=== PATIENT | female | born 1950 | race Caucasian/White ===

== ENCOUNTER 2016-12-02 10:28 | Emergency (ER) | payer MEDICARE, OTHER ==
[2016-12-02] MEDS ORDERED: HYDROmorphone 0.5 MG/0.5 ML Syringe IVPUSH ONE ×3 (10:40→13:27)
[2016-12-02 10:43] VITALS: BP 114/62
[2016-12-02] MEDS ORDERED: Sodium Chloride 0.9% 1,000 ML IV SCH (10:45)
--- NOTE | 2016-12-02 11:25 | EDM.PDOC ---
ED HPI Trauma - General Chief Complaint: Lower Extremity Injury/Pain Stated Complaint: FELL BROKE RT ANKLE Time Seen by Provider: 12/02/16 11:21 Source: Reports: Patient History Limitations: Reports: No limitations - History of Present Illness INITIAL COMMENTS - FREE TEXT/NARRATIVE: pt arrived with severe pain in the rt ankle. She slipped on the steps and lost her balance. Occurred When: just prior to arrival Occurred Where: home Method of Injury: fall Severity: moderate Pain/Injury Location: Reports: lower extremity, right Consciousness: Reports: no loss of consciousness Associated Symptoms: Reports: denies other symptoms Allergies/ADRs: Allergies brompheniramine maleate [From Dimetapp Cold-Allergy (PE)] Allergy (Verified 07:23) Swelling phenylephrine HCl [From Dimetapp Cold-Allergy (PE)] Allergy (Verified 11/13/14 07:23) Swelling Home Medications: Ambulatory Orders NK [No Known Home Meds] 10/09/14 [Confirmed 10/09/14] Past Medical History - Infectious Disease History Infectious Disease History: Reports: Chicken pox - Past Surgical History Other Musculoskeletal Surgeries/Procedures:: back surgery Social & Family History - Tobacco Use Smoking Status *Q: Never Smoker - Caffeine Use Caffeine Use: Reports: Coffee - Recreational Drug Use Recreational Drug Use: No Review of Systems - Review of Systems Review Of Systems: See Below Constitutional: Reports: no symptoms Eyes: Reports: no symptoms Ears: Reports: no symptoms Nose: Reports: no symptoms Mouth/Throat: Reports: no symptoms Respiratory: Reports: No Symptoms Cardiovascular: Reports: no symptoms GI/Abdominal: Reports: No symptoms Genitourinary: Reports: no symptoms Musculoskeletal: Reports: other ( very severe pain in the rt ankle. ) Skin: Reports: no symptoms Trauma Exam - Physical Exam Exam: See Below Text/Narrative:: Pt arrived complaining of severe pain in the rt ankle and it is very deformed. Exam Limited By: No limitations General Appearance: Reports: alert, anxious Head: Reports: atraumatic Eyes: bilateral eye: EOMI, normal inspection, PERRL Ears: Reports: normal TMs Nose: Reports: normal inspection Extremities: Reports: other ( rt ankle is very bruised and painful, deformed. Xrays reveal a trimoear fracture. There is considerable displacement. ) Course - Vital Signs Last Recorded V/S: Last Vital Signs Temp 36.9 C 12/02/16 11:02 Pulse 88 12/02/16 11:02 Resp 16 12/02/16 11:02 BP 114/62 12/02/16 11:02 Pulse Ox 100 12/02/16 11:02 - Orders/Labs/Meds Orders: Active Orders 24 hr Category Date Time Status Sodium Chloride 0.9% [Normal Saline] 1,000 ml Med 12/02/16 10:45 Active IV ASDIRECTED Medication Orders Sodium Chloride (Normal Saline) 1,000 mls @ 999 mls/hr IV ASDIRECTED BRYAN Last Admin: 12/02/16 11:14 Dose: 999 mls/hr Meds: Medications Generic Name Dose Route Start Last Admin Trade Name Freq PRN Reason Stop Dose Admin Sodium Chloride 1,000 mls @ 999 mls/hr 12/02/16 10:45 12/02/16 11:14 Normal Saline IV 999 mls/hr ASDIRECTED BRYAN Administration Discontinued Medications Generic Name Dose Route Start Last Admin Trade Name Freq PRN Reason Stop Dose Admin Hydromorphone HCl 0.5 mg 12/02/16 10:40 12/02/16 10:51 Dilaudid IVPUSH 12/02/16 10:41 0.5 mg ONETIME ONE Administration Hydromorphone HCl 0.5 mg 12/02/16 11:28 12/02/16 11:56 Dilaudid IVPUSH 12/02/16 11:29 0.5 mg ONETIME ONE Administration Propofol Confirm 12/02/16 12:00 Diprivan 20 Ml Administered 12/02/16 12:01 Dose 200 mg .ROUTE .STK-MED ONE - Re-Assessments/Exams Free Text/Narrative Re-Assessment/Exam: 12/02/16 13:23 pt was found to have a treimoleor fracture of the rt ankle. She was very uncomfortable on arrival. On the medial aspect the skin was tented up with a fragment. She was given propothol and she relaxed and we were able to get some reduction of the fracture. She was much more comfortable after that. She was placed in a splint-- short leg and since that time she has been able to be comfortable. Departure - Departure Time of Disposition: 13:27 Disposition: DC/Tfer to Acute Hospital 02 Condition: fair Clinical Impression: Trimalleolar fracture of left ankle Forms: ED Department Discharge Care Plan Goals: transfer to [facility] for direct admission - My Orders Last 24 Hours: My Active Orders 12/02/16 10:45 Sodium Chloride 0.9% [Normal Saline] 1,000 ml IV ASDIRECTED - Assessment/Plan Last 24 Hours: My Active Orders 12/02/16 10:45 Sodium Chloride 0.9% [Normal Saline] 1,000 ml IV ASDIRECTED
--- NOTE | 2016-12-02 11:26 | CR ---
Ankle 2V Rt HISTORY: Injury, pain. COMPARISON: None FINDINGS: Moderately displaced tri malleolar fracture. Talar bone appears intact calcaneus demonstra paxton no definitive fracture.
[2016-12-02] MEDS ORDERED: Propofol 200 MG/20 ML SDV ONE (12:00)
== END 2016-12-02 14:09 ==
LOC: JP.ED 10:28
DX: S82.851A Displaced trimalleolar fracture of right lower leg, initial encounter for closed fracture (principal); Z98.890 Other specified postprocedural states; Z88.8 Allergy status to other drugs, medicaments and biological substances; W10.8XXA Fall (on) (from) other stairs and steps, initial encounter; Y92.099 Unspecified place in other non-institutional residence as the place of occurrence of the external cause
CPT/HCPCS: 27818; 73600; 96361; 96374; 96376; 99284; J1170; J2704; J7040

== ENCOUNTER 2021-01-08 05:52 | Day surgery (SDC) | payer MEDICARE ==
[2021-01-08] MEDS ORDERED: Sodium Chloride 0.9% 10 ML Syringe FLUSH ONE (07:30)
[2021-01-08 07:56] VITALS: BP 125/60; PULSE 56
--- NOTE | 2021-01-08 12:15 | OR ---
DATE OF PROCEDURE: 01/08/2021 SURGEON: Macy Martin MD POSTOPERATIVE CARE: Postoperative care will be provided mainly at the [address] [place] [address] [facility] in conjunction with [facility]. PREOPERATIVE DIAGNOSIS: Cataract, right eye. POSTOPERATIVE DIAGNOSIS: Cataract, right eye. PROCEDURE: Phacoemulsification with intraocular lens placement, right eye. ANESTHESIA: Topical and intracameral. ESTIMATED BLOOD LOSS: Minimal. COMPLICATIONS: None. PATHOLOGY SPECIMENS: None. SURGICAL FINDINGS: None. INDICATION FOR PROCEDURE: The patient is a 70-year-old female with history of a visually significant cataract in the right eye, which interfered with activities of daily living. This consisted of a nuclear sclerosis cataract. Following careful discussion of the risks, benefits and alternatives to cataract extraction with intraocular lens placement including blindness and , the patient elected to proceed, and informed, written consent was obtained prior to the procedure. DESCRIPTION OF THE PROCEDURE: The patient was previously identified, and a bhavna placed above the right eye. All sources, including the patient, indicated that the right eye was the correct eye. The patient was subsequently taken to the operating room where standard monitors were applied. The patient was then prepped and draped in the usual sterile fashion for ophthalmic surgery. Attention was first directed at the 12 o'clock position where a paracentesis port was fashioned. Shugar solution followed by Viscoat was instilled into the eye. Attention was then directed to the 8:30 position where a triplanar incision was made in a near-clear manner using a keratome. A continuous capsulorrhexis was then made using a combination of the cystotome and Utrata forceps. Hydrodissection was achieved using a balanced salt solution, and the lens rotated nicely. Phacoemulsification was then done using a modified [id number]-ybi-fzvnspt technique without complication. Phaco time was CDE. The remaining cortex was removed using the irrigation/aspiration handpiece. Provisc was then instilled into the eye. A Technis lens, model DCB00, at 17.5 diopters was then placed in the capsular bag using an [place] injector. The remaining viscoelastic was removed using the irrigation/aspiration forceps. All wounds were then checked and found to be watertight. The lid speculum and drapes were removed. Maxitrol ointment was placed in the patient's right eye, and the eye was shielded. The patient tolerated the procedure well. The patient was instructed to follow up tomorrow. All needle and sponge counts were correct at the end of the procedure. Macy Martin MD /[id number]
== END 2021-01-08 07:50 | disposition home or self-care (01) ==
LOC: JP.SDS 05:52
PROVIDERS: ATTEND Ophthalmology
DX: H25.11 Age-related nuclear cataract, right eye (principal)
CPT/HCPCS: 66984; V2632

== ENCOUNTER 2021-01-22 07:51 | Day surgery (SDC) | payer MEDICARE ==
[2021-01-22] MEDS ORDERED: Sodium Chloride 0.9% 10 ML Syringe FLUSH SCH (08:15)
[2021-01-22 09:02] VITALS: BP 158/76; PULSE 58
--- NOTE | 2021-01-22 11:44 | OR ---
DATE OF PROCEDURE: 01/22/2021 SURGEON: Macy Martin MD POSTOPERATIVE CARE: Postoperative care will be provided mainly at the [address] [place] [address] [facility] in conjunction with [facility]. PREOPERATIVE DIAGNOSIS: Cataract, left eye. POSTOPERATIVE DIAGNOSIS: Cataract, left eye. PROCEDURE: Phacoemulsification with intraocular lens placement, left eye. ANESTHESIA: Topical and intracameral. ESTIMATED BLOOD LOSS: Minimal. COMPLICATIONS: None. PATHOLOGY SPECIMENS: None. SURGICAL FINDINGS: None. INDICATION FOR PROCEDURE: The patient is a 70-year-old female with history of a visually significant cataract in the left eye, which interfered with activities of daily living. This consisted of a nuclear sclerosis cataract. Following careful discussion of the risks, benefits and alternatives to cataract extraction with intraocular lens placement including blindness and , the patient elected to proceed, and informed, written consent was obtained prior to the procedure. DESCRIPTION OF THE PROCEDURE: The patient was previously identified, and a bhavna placed above the left eye. All sources, including the patient, indicated that the left eye was the correct eye. The patient was subsequently taken to the operating room where standard monitors were applied. The patient was then prepped and draped in the usual sterile fashion for ophthalmic surgery. Attention was first directed at the 12 o'clock position where a paracentesis port was fashioned. Shugar solution followed by Viscoat was instilled into the eye. Attention was then directed to the 8:30 position where a triplanar incision was made in a near-clear manner using a keratome. A continuous capsulorrhexis was then made using a combination of the cystotome and Utrata forceps. Hydrodissection was achieved using a balanced salt solution, and the lens rotated nicely. Phacoemulsification was then done using a modified djgqel-[id number]-[id number] technique without complication. Phaco time was 10.45 CDE. The remaining cortex was removed using the irrigation/aspiration handpiece. Provisc was then instilled into the eye. A Technis lens, model DCB00, at 18.0 diopters was then placed in the capsular bag using an [place] injector. The remaining viscoelastic was removed using the irrigation/aspiration forceps. All wounds were then checked and found to be watertight. The lid speculum and drapes were removed. Maxitrol ointment was placed in the patient's left eye, and the eye was shielded. The patient tolerated the procedure well. The patient was instructed to follow up tomorrow. All needle and sponge counts were correct at the end of the procedure. Macy Martin MD /[id number]
== END 2021-01-22 09:16 | disposition home or self-care (01) ==
LOC: JP.SDS 07:51
PROVIDERS: ATTEND Ophthalmology
DX: H25.12 Age-related nuclear cataract, left eye (principal); Z86.79 Personal history of other diseases of the circulatory system
CPT/HCPCS: V2632

== ENCOUNTER 2021-08-10 07:20 | Emergency (ER) | payer MEDICARE ==
[2021-08-10 07:41] VITALS: BP 148/59; PULSE 61
--- NOTE | 2021-08-10 08:07 | EDM.PDOC ---
ED HPI GENERAL MEDICAL PROBLEM - General Chief Complaint: Cardiovascular Problem Stated Complaint: HEART ISSUES Time Seen by Provider: 08/10/21 07:50 Source of Information: Reports: Patient History Limitations: Reports: No Limitations - History of Present Illness INITIAL COMMENTS - FREE TEXT/NARRATIVE: 71-year-old female, relatively healthy but does have a long standing several year history of recurring and intermittent atrial fibrillation. The episodes typically last just a few hours, they always go away while she is sleeping. Yesterday she had a couple of short "shock" like feelings in her chest that just lasted 2 or 3 seconds, she does not have any type of pacemaker or defibrillator. She was not short of breath but it just caught her off guard and worried her. She did not have chest pain. When she recently had a cardiology consultation and Holter monitor, they recommended anticholesterol medication and a blood pressure medicine but she declined both. No fevers or chills, she is vaccinated for Covid, no nausea or vomiting or other symptoms. She recently had a complete physical with labs. Onset: Sudden Duration: Other (Patient had 2 episodes yesterday that only lasted 2 or 3 seconds each) Location: Reports: Chest Improves with: Reports: None Worsens with: Reports: None Context: Reports: Other (Not related to activity, they were spontaneous) Associated Symptoms: Reports: No Other Symptoms - Related Data Allergies Allergy/AdvReac Type Severity Reaction Status Date / Time brompheniramine maleate Allergy Swelling Verified 08/10/21 07:41 [From Dimetapp Cold-Allergy (PE)] phenylephrine HCl Allergy Swelling Verified 08/10/21 07:41 [From Dimetapp Cold-Allergy (PE)] Home Meds: Home Meds Aller Xt-Tree Pollen-Melaleuca [Melaleuca] 1 ml PO ASDIRECTED 01/05/21 [History] Calcium Carb/Vitamin D3/Vit K1 [Calcium + D Soft Chewable Tab] 1 tab PO DAILY 01/05/21 [History] Diclofenac Sodium [Voltaren 0.1% Ophth Soln] 4 g TOP ASDIRECTED 01/05/21 [History] Folic Acid 1 tab PO DAILY 01/05/21 [History] Glucosam/Chond-Msm1/C/Steve/Bor [Jpkjcfs-Yfutx-VTB Complex Cplt] 1 tab PO DAILY 0 01/05/21 [History] Aspirin [Halfprin] 81 mg PO DAILY 01/19/21 [History] Cholecalciferol (Vitamin D3) [Vitamin D3] 2,000 unit PO DAILY 01/19/21 [History] Multivitamin [Multi-Vitamin Daily] 1 each PO DAILY 01/19/21 [History] Past Medical History HEENT History: Reports: Cataract Cardiovascular History: Reports: Afib Respiratory History: Reports: None Gastrointestinal History: Reports: Colon Polyp Genitourinary History: Reports: None [employer] PROC[employer]ING [employer] WORK[employer] History: Reports: Musculoskeletal History: Reports: Arthritis, Fracture Neurological History: Reports: None Psychiatric History: Reports: None Endocrine/Metabolic History: Reports: None Hematologic History: Reports: None Immunologic History: Reports: None Oncologic (Cancer) History: Reports: None Dermatologic History: Reports: None - Infectious Disease History Infectious Disease History: Reports: Chicken Pox - Past Surgical History HEENT Surgical History: Reports: Cataract Surgery Cardiovascular Surgical History: Reports: None GI Surgical History: Reports: Colonoscopy Musculoskeletal Surgical History: Reports: Other (See Below) Other Musculoskeletal Surgeries/Procedures:: back surgery; right ankle surgery/repair after fracture Social & Family History - Family History Family Medical History: No Pertinent Family History - Tobacco Use Tobacco Use Status *Q: Former Tobacco User Used Tobacco, but Quit: Yes Month/Year Tobacco Last Used: 10 years - Caffeine Use Caffeine Use: Reports: Coffee ED ROS GENERAL - Review of Systems Review Of Systems: See Below Constitutional: Denies: Fever, Chills, Malaise HEENT: Reports: No Symptoms Respiratory: Denies: Shortness of Breath Cardiovascular: Reports: Other (See HPI) GI/Abdominal: Reports: No Symptoms : Reports: No Symptoms Musculoskeletal: Reports: No Symptoms Skin: Reports: No Symptoms Neurological: Reports: No Symptoms Psychiatric: Reports: No Symptoms ED EXAM, GENERAL - Physical Exam Exam: See Below Exam Limited By: No Limitations General Appearance: Alert, No Apparent Distress Eye Exam: Bilateral Eye: Normal Inspection Head: Atraumatic Respiratory/Chest: No Respiratory Distress, Lungs Clear Cardiovascular: Regular Rate, Rhythm, No Murmur. No: Extra Beats GI/Abdominal: Normal Bowel Sounds, Soft Extremities: Normal Inspection. No: Pedal Edema Neurological: Alert, Oriented Psychiatric: Normal Affect, Normal Mood Course - Vital Signs Last Recorded V/S: Last Vital Signs Temp 97.7 F 08/10/21 07:35 Pulse 61 08/10/21 07:35 Resp 16 08/10/21 07:35 BP 148/59 H 08/10/21 07:35 Pulse Ox 99 08/10/21 07:35 - Re-Assessments/Exams Free Text/Narrative Re-Assessment/Exam: 08/10/21 08:06 monitoring manager shows normal sinus rhythm with a rate of 64, no PACs or PVCs. A long discussion was had with the patient regarding expectations with atrial fibrillation and I think she is reconsidering medication to prevent episodes. I am going to try to contact her primary provider to set up an appointment in a few days so she can check her cholesterol and discuss possibly starting metoprolol. She was kept on cardiac monitoring it continued to be in a sinus rhythm. 08/10/21 08:19 Patient was scheduled recheck at 11:45 AM on Tuesday for a cholesterol check and discuss medication options to control atrial fibrillation. She can return anytime before that if worsening or has persistent arrhythmia symptoms. Departure - Departure Time of Disposition: 08:33 Disposition: Home, Self-Care 01 Clinical Impression: Paroxysmal atrial fibrillation Instructions: Atrial Fibrillation Referrals: Suni Pratt PA [Primary Care Provider] - Forms: ED Department Discharge Care Plan Goals: Continue current medications and activity, return to the emergency room if you feel you are in an arrhythmia that is persistent so it can be documented. Also return if any symptoms occur such as chest pain or shortness of breath. Otherwise recheck with Vianey Pratt at 11:45 on Tuesday in [place] for a cholesterol check and discuss medication options to treat your breakthrough intermittent atrial fibrillation. Sepsis Event Note (ED) - Evaluation Sepsis Screening Result: No Definite Risk - Focused Exam Vital Signs: Vital Signs Temp Pulse Resp BP Pulse Ox 08/10/21 07:35 97.7 F 61 16 148/59 H 99
== END 2021-08-10 08:33 | disposition home or self-care (01) ==
LOC: JP.ED 07:20
DX: I48.0 Paroxysmal atrial fibrillation (principal); Z88.8 Allergy status to other drugs, medicaments and biological substances; Z79.82 Long term (current) use of aspirin; Z87.891 Personal history of nicotine dependence
CPT/HCPCS: 99283; 99284

== ENCOUNTER 2022-05-27 16:05 | Emergency (ER) | payer MEDICARE ==
[2022-05-27] MEDS ORDERED: Ondansetron 4 MG/2 ML SDV IVPUSH ONE (16:40)
[2022-05-27] MEDS ORDERED: Ketorolac 30 MG/ML SDV IVPUSH ONE (16:40)
[2022-05-27] MEDS ORDERED: Labetalol 20 MG/4 ML Syringe IVPUSH ONE (16:41)
[2022-05-27] MEDS ORDERED: Tenecteplase 50 MG Kit IV ONE (17:26)
[2022-05-27] MEDS ORDERED: fentaNYL 50 MCG/ML SDV IVPUSH ONE (17:30)
[2022-05-27 19:08] VITALS: BP 141/57; PULSE 80
== END 2022-05-27 17:55 ==
LOC: JP.ED 16:05
DX: I63.9 Cerebral infarction, unspecified (principal); Z88.8 Allergy status to other drugs, medicaments and biological substances; Z79.899 Other long term (current) drug therapy; Z79.82 Long term (current) use of aspirin
CPT/HCPCS: 36415; 70450; 80048; 85025; 85610; 92977; 96374; 96375; 99291; J1885; J2405; J3010; J3101; J3490

== ENCOUNTER 2022-08-26 01:56 | Emergency (ER) | payer MEDICARE ==
[2022-08-26] MEDS ORDERED: Acetaminophen 500 MG Tab PO ONE (02:28)
[2022-08-26] MEDS ORDERED: Sodium Chloride 0.9% 10 ML Syringe FLUSH PRN (02:43)
[2022-08-26 02:56] VITALS: BP 135/46; PULSE 51
== END 2022-08-26 03:34 | disposition home or self-care (01) ==
LOC: JP.ED 01:56
DX: S16.1XXA Strain of muscle, fascia and tendon at neck level, initial encounter (principal); J01.30 Acute sphenoidal sinusitis, unspecified; I48.91 Unspecified atrial fibrillation; Z88.8 Allergy status to other drugs, medicaments and biological substances; Z79.01 Long term (current) use of anticoagulants; Z79.899 Other long term (current) drug therapy
CPT/HCPCS: 70450; 99283; 99284; A9270-GY

== ENCOUNTER 2022-11-11 06:17 | Day surgery (SDC) | payer MEDICARE ==
[2022-11-11] MEDS ORDERED: Sodium Chloride 0.9% 1,000 ML IV SCH (07:00)
[2022-11-11] MEDS ORDERED: Propofol 200 MG/20 ML SDV ONE ×2 (07:28→09:23)
[2022-11-11] MEDS ORDERED: fentaNYL 100 MCG/2 ML SDV ONE (07:28)
[2022-11-11 10:34] VITALS: BP 152/44; PULSE 48
== END 2022-11-11 10:38 | disposition home or self-care (01) ==
LOC: JP.SDS 06:17
PROVIDERS: ATTEND Surgery
DX: D12.2 Benign neoplasm of ascending colon (principal); K57.30 Diverticulosis of large intestine without perforation or abscess without bleeding; G47.33 Obstructive sleep apnea (adult) (pediatric); Z86.010 Personal history of colon polyps; Z88.8 Allergy status to other drugs, medicaments and biological substances
CPT/HCPCS: 45380; 45385; 88305; J2704; J3010; J7030

== ENCOUNTER 2022-12-31 07:31 | Emergency (ER) | payer MEDICARE ==
[2022-12-31] MEDS ORDERED: Nitroglycerin 0.4 MG Tab.SL SL PRN (07:58)
[2022-12-31 08:00] LABS: HEMATOCRIT 33.1 % (34.3-46.0); HEMOGLOBIN 11.5 g/dL (11.2-15.5); MEAN CORPUSCULAR HEMOGLOBIN 31.4 pg (31.6-35.5); MEAN CORPUSCULAR HGB CONC 34.7 g/dL (31.6-35.5); MEAN CORPUSCULAR VOLUME 90.4 fL (81.4-99.0); RED BLOOD CELL COUNT 3.66 M/uL (3.77-5.24); WHITE BLOOD CELL COUNT,WBC 6.2 K/uL (3.2-11.0)
[2022-12-31] MEDS ORDERED: Sodium Chloride 0.9% 1,000 ML IV SCH (08:00)
[2022-12-31 08:17] LABS: PROTHROMBIN TIME 10.3 sec (9.2-10.6)
[2022-12-31] MEDS ORDERED: Acetaminophen 325 MG Tab PO ONE (08:23)
[2022-12-31] MEDS ORDERED: Pantoprazole 40 MG Vial IVPUSH ONE (08:24)
[2022-12-31 08:28] LABS: A/G RATIO 0.9 (1.2-2.2); ALANINE AMINOTRANSFERASE,ALT 28 U/L (12-78); ALBUMIN 3.2 g/dL (3.4-5.0); ALKALINE PHOSPHATASE 54 U/L (46-116); ASPARTATE AMNIOTRANSFERASE,AST 19 U/L (15-37); BILIRUBIN TOTAL 0.5 mg/dL (0.2-1.0); BLOOD UREA NITROGEN,BUN 20 mg/dL (7-18); CALCIUM 9.2 mg/dL (8.5-10.1); CARBON DIOXIDE,CO2 26 mmol/L (21-32); CHLORIDE,CL 102 mmol/L (100-108); CREATININE 0.8 mg/dL (0.6-1.0); EST CRCL DRUG DOSING (CG) 54.08 mL/min; ESTIMATED GFR 78 mL/min (>60); GLUCOSE RANDOM 95 mg/dL (74-106); POTASSIUM,K 4.1 mmol/L (3.6-5.2); PRO B-TYPE NATRIUR PEPT,BNPPRO 98 pg/mL (5-125); PROTEIN TOTAL,TP 6.8 g/dL (6.4-8.2); SODIUM,NA 139 mmol/L (140-148)
[2022-12-31 08:35] LABS: ANION GAP 15.1 mmol/L (5.0-14.0)
[2022-12-31 08:53] VITALS: BP 134/48; PULSE 53
[2022-12-31] MEDS ORDERED: Famotidine 20 MG Tab PO ONE (09:00)
== END 2022-12-31 09:46 | disposition home or self-care (01) ==
LOC: JP.ED 07:31
DX: K21.9 Gastro-esophageal reflux disease without esophagitis (principal); I48.91 Unspecified atrial fibrillation; I10 Essential (primary) hypertension; Z86.16 Personal history of COVID-19; Z88.8 Allergy status to other drugs, medicaments and biological substances; Z79.899 Other long term (current) drug therapy; Z79.01 Long term (current) use of anticoagulants
CPT/HCPCS: 36415; 71045; 80053; 83605; 83880; 84484; 85027; 85610; 93005; 96374; 99285; A9270; C9113; J7030

== ENCOUNTER 2024-10-08 11:25 | Emergency (ER) | payer MEDICARE ==
[2024-10-08] MEDS ORDERED: Sodium Chloride 0.9% 10 ML Syringe FLUSH PRN (11:52)
[2024-10-08 12:00] LABS: BASOPHILS ABSOLUTE AUTO 0.05 K/uL (0.00-0.10); BASOPHILS PERCENT AUTO 0.7 % (0.1-1.3); EOSINOPHILS ABSOLUTE AUTO 0.25 K/uL (0.00-0.40); EOSINOPHILS PERCENT AUTO 3.4 % (0.0-5.4); HEMATOCRIT 37.1 % (34.3-46.0); HEMOGLOBIN 12.9 g/dL (11.2-15.5); IMMATURE GRAN ABSOLUTE AUTO 0.05 K/uL (0.00-0.23); IMMATURE GRAN PERCENT AUTO 0.7 % (0.0-0.7); LYMPHOCYTES ABSOLUTE AUTO 2.45 K/uL (0.8-3.3); LYMPHOCYTES PERCENT AUTO 33.8 % (11.4-47.7); MEAN CORPUSCULAR HEMOGLOBIN 31.9 pg (31.6-35.5); MEAN CORPUSCULAR HGB CONC 34.8 g/dL (31.6-35.5); MEAN CORPUSCULAR VOLUME 91.8 fL (81.4-99.0); MONOCYTES PERCENT AUTO 8.3 % (3.3-12.6); NEUTROPHILS ABSOLUTE AUTO 3.85 K/uL (1.0-7.6); NEUTROPHILS PERCENT AUTO 53.1 % (40.0-78.1); PLATELET COUNT,PLT 247 K/uL (130-375); RED BLOOD CELL COUNT 4.04 M/uL (3.77-5.24); WHITE BLOOD CELL COUNT,WBC 7.3 K/uL (3.2-11.0)
[2024-10-08] MEDS: Ondansetron 4 MG/2 ML SDV IVPUSH ONE (12:02)
[2024-10-08] MEDS: Sodium Chloride 0.9% 10 ML Syringe FLUSH PRN (12:02)
[2024-10-08 12:23] LABS: ALANINE AMINOTRANSFERASE,ALT 31 U/L (12-78); ALBUMIN 3.8 g/dL (3.4-5.0); ALKALINE PHOSPHATASE 56 U/L (46-116); ANION GAP 10.8 mmol/L (5.0-14.0); ASPARTATE AMNIOTRANSFERASE,AST 21 U/L (15-37); BILIRUBIN TOTAL 0.5 mg/dL (0.2-1.0); BLOOD UREA NITROGEN,BUN 20 mg/dL (7-18); CARBON DIOXIDE,CO2 26 mmol/L (21-32); CHLORIDE,CL 103 mmol/L (100-108); CREATININE 0.8 mg/dL (0.6-1.0); EST CRCL DRUG DOSING (CG) 52.47 mL/min; ESTIMATED GFR 77 mL/min (>60); GLUCOSE RANDOM 100 mg/dL (74-106); PROTEIN TOTAL,TP 7.6 g/dL (6.4-8.2); SODIUM,NA 140 mmol/L (140-148); TROPONIN I HIGH SENSITIVITY 5.5 pg/mL (<=60.3)
[2024-10-08] MEDS: fentaNYL 100 MCG/2 ML SDV IVPUSH ONE (12:39)
[2024-10-08] MEDS: diphenhydrAMINE 50 MG/ML SDV IVPUSH ONE (13:45)
[2024-10-08] MEDS: Sodium Chloride 0.9% 1,000 ML IV SCH (13:45)
[2024-10-08] MEDS: Ketorolac 15 MG/ML SDV IVPUSH ONE (13:45)
[2024-10-08 15:06] VITALS: BP 151/51; PULSE 52
== END 2024-10-08 15:16 | disposition home or self-care (01) ==
LOC: JP.ED 11:25
DX: G43.909 Migraine, unspecified, not intractable, without status migrainosus (principal); I10 Essential (primary) hypertension; I48.91 Unspecified atrial fibrillation; Z86.16 Personal history of COVID-19; Z87.891 Personal history of nicotine dependence; Z90.49 Acquired absence of other specified parts of digestive tract; Z79.899 Other long term (current) drug therapy; Z79.01 Long term (current) use of anticoagulants; Z88.8 Allergy status to other drugs, medicaments and biological substances
CPT/HCPCS: 36415; 70450; 80053; 84484; 85025; 96374; 96375; 99284; J1200; J1885; J2405; J3010; J7030